=== PATIENT | female | born 1975 | race Caucasian/White ===

== ENCOUNTER → 2017-07-18 | Outpatient (CLI) | payer OTHER | LOC: FIMAGING 08:50 | PROVIDERS: ATTEND Obstetrics & Gynecology | DX: Z12.31 Encounter for screening mammogram for malignant neoplasm of breast (principal) ==

== ENCOUNTER → 2017-07-23 | Outpatient (CLI) | payer OTHER | LOC: FIMAGING 09:54 | PROVIDERS: ATTEND Obstetrics & Gynecology | DX: N63.10 Unspecified lump in the right breast, unspecified quadrant (principal) ==

== ENCOUNTER 2018-03-29 22:12 | Emergency (ER) | payer OTHER ==
--- NOTE | 2018-03-29 22:24 | EDPHY ---
H & P Stated Complaint: nut allergy Pt ate something now feels like she is has a swollen tongue Time Seen by Provider: 03/29/18 22:24 HPI/ROS: HPI CHIEF COMPLAINT: Possible allergic reaction. HISTORY OF PRESENT ILLNESS: This is a 42-year-old female, presents emergency room after she states she had dinner around 9:00 p.m. Tonight. Shortly after this she developed some itching in her tongue and throat. Denies trouble swallowing. Denies trouble breathing. Denies chest pain or shortness of breath , denies rash. She has a history of not allergies. She does carry an epinephrine pen she did not give herself an epinephrine shot. Presents emergency room stating that she is unsure if there was a not exposure. It is now 1030 at night. Patient 2 Benadryl prior to arrival. Past Medical History: Denies significant medical history Past Surgical History: Denies significant surgical history Social History: Denies drugs alcohol tobacco. Family History: Noncontributory. ROS REVIEW OF SYSTEMS: 10 Systems were reviewed and negative with the exception of the elements mentioned in the history of present illness. Exam Constitutional appears well nontoxic vital signs stable, triage nursing summary reviewed, vital signs reviewed, awake/alert. Eyes normal conjunctivae and sclera, EOMI, PERRLA. HENT posterior pharynx unremarkable, no significant swelling, no tongue swelling normal inspection, atraumatic, moist mucus membranes, no epistaxis, neck supple/ no meningismus, no raccoon eyes. Respiratory clear to auscultation bilaterally, normal breath sounds, no respiratory distress, no wheezing. Cardiovascular rate normal, regular rhythm, no murmur, no edema, distal pulses normal. Gastrointestinal soft, non-tender, no rebound, no guarding, normal bowel sounds, no distension, no pulsatile mass. Genitourinary no CVA tenderness. Musculoskeletal no midline vertebral tenderness, full range of motion, no calf swelling, no tenderness of extremities, no meningismus, good pulses, neurovascularly intact. Skin pink, warm, & dry, no rash, skin atraumatic. Neurologic awake, alert and oriented x 3, AAOx3, moves all 4 extremities equally, motor intact, sensory intact, CN II-XII intact, normal cerebellar, normal vision, normal speech. Psychiatric normal mood/affect. Heme/Lymph/Immune no lymphadenopathy. Differential Diagnosis: Includes but is not limited to in a particular order allergic reaction, anxiety, not allergy, severe allergic reaction, anaphylaxis, angioedema Medical Decision Making: Here in emergency room this patient appears well, nontoxic no acute distress there is no evidence of severe allergic reaction urticaria here in the emergency room. No evidence of oropharyngeal swelling. Re-evaluation: Plan for this patient: Oral prednisone, oral Benadryl, oral Pepcid. And re- evaluate. Monitor for worsening signs of symptoms. 1220: Patient re-evaluated this time resting comfortably. No further trouble swelling, no trouble breathing. He is requesting discharge. She has no further progression of allergic reaction symptoms. She is monitored for over 2 hr in the emergency room. Return precautions discussed with her she understands return emergency room she has trouble breathing trouble swallowing, any further signs of allergic reaction. Prednisone, Benadryl, Pepcid provided for the next 3 days. Return precautions discussed with her strict return precautions she understands. Source: Patient - Personal History LMP (Females 10-55): 22-28 Days Ago Current Tetanus/Diphtheria Vaccine: Yes Current Tetanus Diphtheria and Acellular Pertussis (TDAP): Yes Tetanus Vaccine Date: 2009 - Medical/Surgical History Hx Asthma: No Hx Chronic Respiratory Disease: No Hx Diabetes: No Hx Cardiac Disease: No Hx Renal Disease: No Hx Cirrhosis: No Hx Alcoholism: No Hx HIV/AIDS: No Hx Splenectomy or Spleen Trauma: No Other PMH: denies - Social History Smoking Status: Never smoked Constitutional: Initial Vital Signs Temperature (C) 36.2 C 03/29/18 22:15 Heart Rate 87 03/29/18 22:15 Respiratory Rate 16 03/29/18 22:15 Blood Pressure 109/72 03/29/18 22:15 O2 Sat (%) 99 03/29/18 22:15 O2 Delivery Mode Room Air Allergies/Adverse Reactions: tree nut [Nuts] Allergy (Verified 03/29/18 22:17) Home Medications: Medication Instructions Recorded Zoloft 07/08/11 Famotidine [Pepcid 20 MG (*)] 20 mg PO BID #6 tab 03/29/18 diphenhydrAMINE [Benadryl 25 MG 25 mg PO BID #6 tab 03/29/18 (*)] predniSONE 60 mg PO DAILY #9 tab 09/28/18 Medical Decision Making - Data Points Medications Given: Discontinued Medications Diphenhydramine HCl (Benadryl) 50 mg PO EDNOW ONE Stop: 03/29/18 22:27 Last Admin: 03/29/18 22:38 Dose: 50 mg Famotidine (Pepcid) 20 mg PO EDNOW ONE Stop: 03/29/18 22:27 Last Admin: 03/29/18 22:38 Dose: 20 mg Prednisone (Prednisone) 60 mg PO EDNOW ONE Stop: 03/29/18 22:27 Last Admin: 03/29/18 22:38 Dose: 60 mg Departure - Departure Disposition: Home, Routine, Self-Care Clinical Impression: Allergic reaction Qualifiers: Encounter type: initial encounter Qualified Code(s): T78.40XA - Allergy, unspecified, initial encounter Condition: Good Instructions: Urticaria (ED), Food Allergy (ED), Anaphylaxis (ED) Additional Instructions: 1. Return emergency room immediately if he develops worsening signs of allergic reaction. Referrals: NONE *PRIMARY CARE P,. [Primary Care Provider] - As per Instructions Prescriptions: diphenhydrAMINE [Benadryl 25 MG (*)] 25 mg PO BID #6 tab Famotidine [Pepcid 20 MG (*)] 20 mg PO BID #6 tab predniSONE 60 mg PO DAILY #9 tab
[2018-03-29] MEDS ORDERED: diphenhydrAMINE 25 MG CAP PO ONE (22:26)
[2018-03-29] MEDS ORDERED: predniSONE 20 MG TAB PO ONE (22:26)
[2018-03-29] MEDS ORDERED: FAMOTIDINE 20 MG TAB PO ONE (22:26)
[2018-03-30 00:16] VITALS: BP 107/61
== END 2018-03-30 00:34 | disposition home or self-care (01) ==
DX: T78.1XXA Other adverse food reactions, not elsewhere classified, initial encounter (principal)
CPT/HCPCS: J7512

== ENCOUNTER → 2018-07-19 | Outpatient (CLI) | payer OTHER | LOC: FIMAGING 13:20 | PROVIDERS: ATTEND Obstetrics & Gynecology | DX: Z12.31 Encounter for screening mammogram for malignant neoplasm of breast (principal) ==

== ENCOUNTER 2018-08-15 17:15 | Emergency (ER) | payer OTHER ==
--- NOTE | 2018-08-15 17:18 | EDPHY ---
H & P Time Seen by Provider: 08/15/18 17:17 HPI/ROS: CHIEF COMPLAINT: The injury after fall HISTORY OF PRESENT ILLNESS: Patient arrives by EMS after falling while hanging art work. She was on a stepladder and the art work fell off the wall and she went with it onto the floor. No loss of consciousness, left hand and left knee and left forehead pain. No vomiting. No visual symptoms. No seizure reported. REVIEW OF SYSTEMS: Eye: no change in vision ENT: no sore throat Cardiac: no chest pain or syncope Pulmonary: no cough or SOB Abdomen: no vomiting, diarrhea, abdominal pain Musculoskeletal: HPI no back or neck pain Skin: Small abrasion left hand. Neuro: Mild headache on the left forehead. Constitutional: no fever : no urinary symptoms A comprehensive 10 point review of systems is otherwise negative aside from elements mentioned in the history of present illness. PAST MEDICAL HISTORY: Anxiety on Zoloft, no anticoagulation Social history: Nonsmoker, no alcohol General Appearance: Alert and conversant, cooperative. Eyes: No scleral icterus. Pupils equal reactive extraocular motion intact. ENT, Mouth: Normal mucous membranes. No hemotympanum. Respiratory: Normal respiratory effort, breath sounds equal, lungs are clear to auscultation. Cardiovascular: Regular rate and rhythm. Gastrointestinal: Abdomen is soft and non tender. Neurological: Alert, face symmetric, normal motor and sensory in extremities. Skin: Bruising ecchymosis left forehead without laceration. A 2 mm abrasion left dorsum of the hand near the small finger metacarpal. Musculoskeletal: No midline spinal tenderness. No upper extremity bony tenderness including left snuffbox and full hand. No rotation of the fingers with flexion. She has some medial left knee tenderness to palpation but no effusion. Stable to varus and valgus stress. Gonzalez's negative. Remainder of the bilateral lower extremity exam is normal. Psychiatric: Not agitated. Emergency Department course/MDM: Does not have red flags to suggest high risk for intracranial hemorrhage, subdural or epidural, or skull fracture. Left knee x-ray. Patient says she does not think her left hand is broken or fractured and I think I agree. 1824: Patient states she is uncomfortable being discharged without definitive cranial imaging, CT head ordered. She had normal mental status the whole time and I think that concussion is unlikely. 1933: Negative head CT per Dr. Nicole. I reviewed the patient's the knee x-ray with her. I think it is reasonable to discharge her with activity as tolerated as she is not point tender over the x- ray abnormality and even if it were to be a fracture I think that as tolerated activity seems reasonable. She is leaving to go skiing in [place] tomorrow and would prefer this course of action, will follow up with Orthopedics next week if still uncomfortable. Smoking Status: Never smoked Constitutional: Initial Vital Signs Temperature (C) 36.5 C 08/15/18 17:36 Heart Rate 59 L 08/15/18 17:36 Respiratory Rate 16 08/15/18 17:36 Blood Pressure 133/74 H 08/15/18 17:36 O2 Sat (%) 96 08/15/18 17:36 O2 Delivery Mode Room Air Allergies/Adverse Reactions: tree nut [Nuts] Allergy (Verified 08/15/18 18:18) Home Medications: Medication Instructions Recorded Zoloft 07/08/11 Famotidine [Pepcid 20 MG (*)] 20 mg PO BID #6 tab 03/29/18 diphenhydrAMINE [Benadryl 25 MG 25 mg PO BID #6 tab 03/29/18 (*)] predniSONE 60 mg PO DAILY #9 tab 03/29/18 Medical Decision Making - Diagnostics Imaging Results: Imaging Impressions Knee X-Ray 08/15/18 17:28 Impression: Either a small fracture fragment off a superior patellar spur or a small degenerative calcification in the distal quadriceps tendon. Head CT 08/15/18 18:26 Impression: No acute intracranial process. Findings and recommendations discussed with ARELY GUERRIER at 1933 hour, 2018. Imaging: Discussed imaging studies w/ gericare aide Radiologist Differential Diagnosis: Differential diagnosis considered for head injury including but not limited to concussion, skull fracture, intraparenchymal contusion, subarachnoid, subdural and epidural hematoma. - Data Points Medications Given: Discontinued Medications Ibuprofen (Motrin) 600 mg PO EDNOW ONE Stop: 08/15/18 17:29 Last Admin: 08/15/18 17:42 Dose: 600 mg Departure - Departure Disposition: Home, Routine, Self-Care Clinical Impression: Head contusion Qualifiers: Encounter type: initial encounter Contusion of head detail: unspecified part of head Qualified Code(s): S00.93XA - Contusion of unspecified part of head, initial encounter Contusion of left knee Qualifiers: Encounter type: initial encounter Qualified Code(s): S80.02XA - Contusion of left knee, initial encounter Condition: Good Instructions: Head Injury (ED), Contusion in Adults (ED) Additional Instructions: Negative head CT for injury. Your x-ray was read by the radiologist as possible chip fracture in the left knee off the patella, also it is possible this is a chronic finding. Activity as tolerated. Please follow-up next week with orthopedist if your knee still is hurting. Referrals: Colette Emmaneul MD [Primary Care Provider] - As per Instructions Minh Norman MD [Medical Doctor] - As per Instructions
[2018-08-15] MEDS ORDERED: IBUPROFEN 600 MG TAB PO ONE (17:28)
[2018-08-15 19:42] VITALS: BP 109/66
== END 2018-08-15 19:42 | disposition home or self-care (01) ==
LOC: EDUNIT#
DX: S00.93XA Contusion of unspecified part of head, initial encounter (principal); S80.02XA Contusion of left knee, initial encounter; W11.XXXA Fall on and from ladder, initial encounter; Y92.009 Unspecified place in unspecified non-institutional (private) residence as the place of occurrence of the external cause; F41.9 Anxiety disorder, unspecified; Z79.811 Long term (current) use of aromatase inhibitors